=== PATIENT | male | born 1980 | race Caucasian/White ===

== ENCOUNTER 2024-07-03 17:25 | Emergency (ER) | payer BC, MEDICAID, SELFPAY ==
[2024-07-03 18:14] VITALS: BP 127/81; PULSE 74; RESP 17; TEMP 36.6; O2SAT 100; BMI 25.1
--- NOTE | 2024-07-03 19:17 | W.ED.DENTAL ---
HPI - Dental/Oral General: Chief complaint: Dental/Oral Stated complaint: lt side lower dental pain Time Seen by Provider: 07/03/24 18:48 Source: patient Mode of arrival: ambulatory Limitations: no limitations History of Present Illness: Patient is a 44-year-old male who presents to ED today for evaluation of dental pain/possible abscess. He feels like he can taste infection in his mouth. Patient states he has not seen a dentist since the age of 9. He admittedly needs all of his teeth pulled due to significant widespread periodontal disease. He has not noticed any swelling to his face or neck. No fevers. He is eating and drinking normally. No trouble swallowing or breathing. Onset (ago): day(s) Duration: constant Severity: mild Relieving factors: nothing Exacerbating factors: nothing Context: history of dental caries and poor dental care Associated symptoms: Denies ear or mastoid pain, fever(s) or odynophagia Treatment prior to arrival: none Related Data Previous Rx's ?Medication ?Instructions ?Recorded penicillin V potassium 500 mg 500 mg PO Q8H 7 days #21 tabs 07/03/24 tablet Allergies Allergy/AdvReac Type Severity Reaction Status Date / Time No Known Allergies Allergy Verified 07/03/24 18:19 Review of Systems Const: Denies: fever(s), chills, body aches, fatigue or malaise ENMT: Reports: dental pain; Denies: throat pain, uvular edema, enlarged tonsils, odynophagia, hoarseness, oral sores, bleeding gums, dry mouth or ear or mastoid pain Musc: Denies: neck pain Neuro: Denies: headache(s) Physical Exam Const: COMMON NORMALS: no acute distress, average body habitus, no limitations, healthy appearing, alert and well nourished HENMT: FACE & SINUS: normal facial exam, sinuses nontender and face symmetric; no erythema and no edema MOUTH: lip normal, tongue normal and Normal salivary glands and ducts present TEETH & GINGIVA: Yes caries and Yes other (very tooth is completely decayed, missing, fractured, etc) THROAT: posterior oropharynx normal and tonsils normal; no uvular edema OTHER: has some mild swelling along L lower gumline w/o drainable abscess; no submandibular or sublingual swelling Neck/C-Spine: COMMON NORMALS: no lymphadenopathy GENERAL: Yes normal visual inspection, No anterior neck swelling and No submandibular swelling Neuro: SENSORIUM/ORIENTATION: Yes alert Course Vital Signs: Vital signs: Vital Signs Temperature 97.9 F 07/03/24 18:14 Pulse Rate 74 07/03/24 18:14 Respiratory Rate 17 07/03/24 18:14 Blood Pressure 127/81 07/03/24 18:14 Pulse Oximetry 100 07/03/24 18:14 Oxygen Delivery Me thod Room Air 07/03/24 18:14 MDM - Dental/Oral Medical Decision Making Patient will be placed on antibiotics. Recommendations for dental follow-up as soon as possible. I did provide him with the dental resources we have on file here. I also gave him information for another dental office here in [place] that accepts adult Medicaid. Return ED precautions discussed. 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
[2024-07-03] MEDS: penicillin v potassium 250 mg Tablet 500 MG PO (19:31)
[2024-07-03 19:51] VITALS: BP 137/81; PULSE 88; O2SAT 98
== END 2024-07-03 19:30 | disposition home or self-care (01) ==
PROVIDERS: Emergency Provider Physician Assistant
DX: K02.9 Dental caries, unspecified (principal); K04.7 Periapical abscess without sinus
CPT/HCPCS: 99283

== ENCOUNTER → 2024-10-31 10:58 | Outpatient (BNVA) | payer BC, MEDICAID, SELFPAY | PROVIDERS: Visit Provider Orthopaedic Surgery | DX: M54.2 Cervicalgia (principal); M54.9 Dorsalgia, unspecified | CPT/HCPCS: 72050; 72072; 72110 ==

== ENCOUNTER 2025-02-13 14:03 | Outpatient (CLI) | payer BC, MEDICAID, SELFPAY ==
--- NOTE | 2025-02-13 15:15 | MR_ITS ---
WS: [id number] MRI THORACIC SPINE WITHOUT CONTRAST TECHNIQUE: Sagittal T1, T2 and STIR imaging. Axial T2 imaging. Noncontrast imaging obtained. CLINICAL INFORMATION: Mid back pain COMPARISON: None. FINDINGS: Mild thoracic curve. Mild thoracic kyphosis. Mild spondylitic changes with endplate Schmorl's nodes in the midthoracic spine. No high-grade central canal stenosis. Cord signal is normal. No acute compression fractures. Anterior hypertrophic changes in the mid thoracic spine. Tiny central protrusion at T7-T8, T8-T9, and T9-T10 with slight effacement of the ventral thecal sac. No significant central canal stenosis. Moderate facet arthropathy lower thoracic spine. Mild disc bulging at L1-2 with a small annular fissure. Normal paravertebral soft tissues. Tiny central protrusion cervical spine on the [employer] imaging at C5-6. Normal caliber descending thoracic aorta. Adrenal glands are normal. Small esophageal hiatal hernia. MR/MR thoracic spin wo con* [id number] IMPRESSION: 1. Moderate thoracic kyphosis. No acute compression fractures. 2. Cord signal is normal. 3. Anterior hypertrophic changes mid thoracic spine with a few Schmorl's nodes in the midthoracic spine. 4. A few tiny central protrusions described above. No significant central kamilla l stenosis. 5. Mild disc bulging L1-2 with a tiny annular fissure
== END 2025-02-13 14:04 | disposition home or self-care (01) ==
LOC: RAD 14:04
PROVIDERS: Visit Provider Orthopaedic Surgery
DX: M40.204 Unspecified kyphosis, thoracic region (principal); M51.360 Other intervertebral disc degeneration, lumbar region with discogenic back pain only; M51.44 Schmorl's nodes, thoracic region
CPT/HCPCS: 72146

== ENCOUNTER 2025-04-11 14:59 | Outpatient (CLI) | payer BC, MEDICAID, SELFPAY ==
--- NOTE | 2025-04-11 15:15 | MR_ITS ---
WS: [id number] MRI RIGHT SHOULDER NONCONTRAST TECHNIQUE: Sagittal T2, coronal T1, T2 and proton density imaging. Axial gradient PDE imaging. CLINICAL INFORMATION: M25.511 - Pain in right shoulder COMPARISON: None. FINDINGS: Moderate to advanced arthritis AC joint with small amount of fluid and edema. Subacromial spurring. Impingement on the underlying supraspinatus and infraspinatus. Mild tendinopathy supraspinatus and infraspinatus. Normal teres minor. Prominent tendinopathy subscapularis tendon with thickening and irreg ularity suspicious for partial intrasubstance tear. Biceps tendon appears intact within the bicipital groove. Slight tendinopathy intra-articular biceps tendon. Small ganglion cyst along the spinoglenoid notch measuring 9.7 mm. No significant atrophy of the infraspinatus. Some irregularity with fluid signal in the posterior labrum suspicious for prior chronic posterior SLAP tear. MR/MR shoulder RT wo con* [id number] IMPRESSION: 1. Moderate to advanced arthritis AC joint with small amount of fluid and vivien a. Subacromial spurring. Impingement on the underlying supraspinatus and infras pinatus. 2. Suspected partial intrasubstance tear subscapularis tendon with a small simon unt of fluid and edema. Associated tendinopathy. 3. Slight tendinopathy intra-articular biceps tendon which appears intact. 4. Biceps tendon appears intact within the bicipital groove. 5. Small 9.7 mm ganglion cyst along the spinoglenoid notch. No evidence of atr ophy involving the infraspinatus. 6. Irregularity along the posterior labrum suspicious for prior chronic poste rior SLAP tear. Recommend correlation with clinical history.
== END 2025-04-11 15:00 | disposition home or self-care (01) ==
LOC: RAD 15:01
PROVIDERS: PCP Anesthesiology Pain Medicine; Visit Provider Anesthesiology Pain Medicine
DX: M19.011 Primary osteoarthritis, right shoulder (principal); M75.91 Shoulder lesion, unspecified, right shoulder; M67.411 Ganglion, right shoulder
CPT/HCPCS: 73221